=== PATIENT | female | born 1985 | race Two or more races ===

== ENCOUNTER 2019-12-20 15:54 | Emergency (ER) | payer MEDICAID, OTHER ==
[~2019-12-20] VITALS: Ht 165.1 cm; Wt 100.0 kg
[2019-12-20] MEDS ORDERED: CRAN1CAP5 PO (16:17)
[2019-12-20] MEDS ORDERED: SODIUM CHLORIDE 0.9% 1,000 ML IV ONE (18:21)
[2019-12-20] MEDS ORDERED: KETOROLAC 30MG/ML VIAL IV STA (18:21)
[2019-12-20] MEDS ORDERED: ONDANSETRON HCL 4MG/2ML INJ IV STA (18:21)
[2019-12-20] MEDS ORDERED: HYDROCODONE/ACETAMINOPHEN 5/325MG TABLET PO ONE (19:00)
[2019-12-20 19:09] LABS: CHLORIDE 104 mEq/L (98-107)
[2019-12-20 19:12] LABS: BASOPHILS % 0.7 % (0.0-2.0); EOSINOPHILS % 2.4 % (0.0-5.0); HEMATOCRIT. 42.8 % (36.0-48.0); HEMOGLOBIN. 14.9 g/dL (12.0-16.0); LYMPHOCYTES % 33.7 % (20.0-50.0); MEAN CORPUSCULAR HEMOGLOBIN 30.7 pg (28.0-32.0); MONOCYTES % 5.9 % (2.0-8.0); NEUTROPHILS % 57.3 % (40.0-76.0); PLATELET 190 x1000/uL (130-400); RED BLOOD CELL COUNT 4.87 mill/uL (4.2-5.4); RED CELL DISTRIBUTION WIDTH 12.6 % (11.6-14.6)
[2019-12-20 19:14] LABS: INR 0.9; PROTHROMBIN TIME 9.8 sec (9.6-11.0)
[2019-12-20 19:17] LABS: CLARITY URINE CLEAR (CLEAR); COLOR URINE DARK YELLOW (YELLOW); KETONES URINE NEGATIVE (NEGATIVE); LEUKOCYTE ESTERASE URINE 1+ (NEGATIVE); NITRITE URINE NEGATIVE (NEGATIVE); OCCULT BLOOD URINE 1+ (NEGATIVE); PH URINE 6.5 (4.5-8.0); PROTEIN URINE NEGATIVE (NEGATIVE); SPECIFIC GRAVITY URINE 1.011 (1.005-1.030); UROBILINOGEN URINE 0.2 E.U./dL (0.2-1.0)
[2019-12-20 19:20] LABS: HCG SCREEN NEGATIVE
[2019-12-20] MEDS ORDERED: CEFTRIAXONE 1 G PREMIX 50 ML IV NR (20:00)
[2019-12-20 21:10] VITALS: BP 130/78
== END 2019-12-20 22:31 | disposition home or self-care (01) ==
LOC: ER 15:54
DX: N12 Tubulo-interstitial nephritis, not specified as acute or chronic (principal); N39.0 Urinary tract infection, site not specified; Z98.890 Other specified postprocedural states
CPT/HCPCS: 36415; 76770; 80053; 81003; 81025; 83690; 84703; 85025; 85610; 87086; 96365; 96375; 99284; J0696; J1885; J2405; J7030

== ENCOUNTER 2023-08-06 16:05 | Emergency (ER) | payer MEDICAID ==
[~2023-08-06] VITALS: Ht 167.6 cm; Wt 91.0 kg
[~2023-08-06 16:05] MED LIST: CRAN1CAP5 PO
[2023-08-06 16:35] VITALS: TEMP 100.6; O2SAT 100
[2023-08-06 17:48] LABS: BASOPHILS % 0.8 % (0.0-2.0); EOSINOPHILS % 0.8 % (0.0-5.0); HEMATOCRIT. 41.7 % (36.0-48.0); HEMOGLOBIN. 13.7 g/dL (12.0-16.0); LYMPHOCYTES % 22.5 % (20.0-50.0); MEAN CORPUSCULAR HEMOGLOBIN 29.3 pg (28.0-32.0); MEAN CORPUSCULAR HGB CONC 32.9 g/dL (31.0-37.0); MEAN PLATELET VOLUME 9.9 fl (7.4-10.4); MONOCYTES % 6.7 % (2.0-8.0); NEUTROPHILS % 69.2 % (40.0-76.0); PLATELET 233 x1000/uL (130-400); RED BLOOD CELL COUNT 4.68 mill/uL (4.2-5.4); RED CELL DISTRIBUTION WIDTH 12.7 % (11.6-14.6); WHITE BLOOD COUNT 12.5 x1000/uL (4.5-11.0)
[2023-08-06 18:00] LABS: ALANINE AMINOTRANSFERASE 16 IU/L (10-49); ALBUMIN 4.6 g/dL (3.2-4.8); ASPARTATE AMINOTRANSFERASE 13 IU/L (<34); BILIRUBIN TOTAL 0.3 mg/dL (0.1-1.0); CALCIUM 9.8 mg/dL (8.7-10.4); CARBON DIOXIDE 29 mEq/L (21-32); CHLORIDE 104 mEq/L (98-107); CREATININE 0.8 mg/dL (0.6-1.0); GLUCOSE 102 mg/dL (70-105); POTASSIUM 3.9 mEq/L (3.5-5.1); PROTEIN TOTAL 7.9 g/dL (6.0-8.3); SODIUM 139 mEq/L (136-145); UREA NITROGEN BLOOD 12 mg/dL (9-23)
[2023-08-06 18:47] LABS: CLARITY URINE CLOUDY (CLEAR); COLOR URINE YELLOW (YELLOW); GLUCOSE URINE NEGATIVE (NEGATIVE); KETONES URINE NEGATIVE (NEGATIVE); LEUKOCYTE ESTERASE URINE 3+ (NEGATIVE); NITRITE URINE NEGATIVE (NEGATIVE); OCCULT BLOOD URINE 1+ (NEGATIVE); PROTEIN URINE 1+ (NEGATIVE); UROBILINOGEN URINE 0.2 E.U./dL (0.2-1.0)
[2023-08-06 19:26] LABS: BACTERIA URINE 1+; RBC URINE 0-2 /hpf (0-2); WBC URINE 25-50 /hpf (0-2)
[2023-08-06] MEDS ORDERED: CEFTRIAXONE SODIUM 1 G/VIAL IM ONE (19:30)
[2023-08-06] MEDS ORDERED: CEFTRIAXONE SODIUM 1 G/VIAL IM NR (19:30)
[2023-08-06] MEDS ORDERED: ACETAMINOPHEN 325MG TABLET PO ONE (19:30)
[2023-08-06] MEDS ORDERED: ACETAMINOPHEN 325MG TABLET PO NR (19:30)
[2023-08-06 20:30] VITALS: BP 142/87; PULSE 91; RESP 16
[2023-08-06] MEDS ORDERED: KETOROLAC 60MG/2ML VIAL IM ONE (20:30)
[2023-08-06] MEDS ORDERED: KETOROLAC 60MG/2ML VIAL IM NR (20:30)
[2023-08-06] MEDS ORDERED: NITR-87 MT (22:20)
== END 2023-08-07 00:01 | disposition home or self-care (01) ==
LOC: ER 16:11
DX: N39.0 Urinary tract infection, site not specified (principal); R10.30 Lower abdominal pain, unspecified; Z98.890 Other specified postprocedural states
CPT/HCPCS: 99283; 80053; 81003; 81025; 85025; 87086; 87186; 87077; 36415; 96372; J0696; J1885

== ENCOUNTER 2025-06-17 00:20 | Emergency (ER) | payer SELFPAY ==
[~2025-06-17] VITALS: Ht 165.1 cm; Wt 107.0 kg
[~2025-06-17 00:20] MED LIST changes: +NITR-87 MT
[2025-06-17 00:34] VITALS: O2SAT 98
[2025-06-17 01:13] LABS: BASOPHILS % 1.0 % (0.0-2.0); EOSINOPHILS % 2.0 % (0.0-5.0); HEMATOCRIT. 40.6 % (36.0-48.0); HEMOGLOBIN. 13.6 g/dL (12.0-16.0); LYMPHOCYTES % 41.2 % (20.0-50.0); MEAN PLATELET VOLUME 9.4 fl (7.4-10.4); MONOCYTES % 6.6 % (2.0-8.0); NEUTROPHILS % 49.2 % (40.0-76.0); PLATELET 246 x1000/uL (130-400); RED BLOOD CELL COUNT 4.74 mill/uL (4.2-5.4); RED CELL DISTRIBUTION WIDTH 13.0 % (11.6-14.6)
[2025-06-17] MEDS: LIDOCAINE 5% PATCH TOP SCH (01:15)
[2025-06-17 01:22] LABS: CREATININE 0.8 mg/dL (0.6-1.0); UREA NITROGEN BLOOD 12 mg/dL (9-23)
[2025-06-17] MEDS: KETOROLAC 15MG/ML VIAL IM ONE (01:47)
[2025-06-17 01:48] LABS: CLARITY URINE CLEAR (CLEAR); COLOR URINE YELLOW (YELLOW); GLUCOSE URINE NEGATIVE (NEGATIVE); KETONES URINE NEGATIVE (NEGATIVE); LEUKOCYTE ESTERASE URINE NEGATIVE (NEGATIVE); NITRITE URINE NEGATIVE (NEGATIVE); OCCULT BLOOD URINE NEGATIVE (NEGATIVE); PH URINE 6.5 (4.5-8.0); PROTEIN URINE 1+ (NEGATIVE); SPECIFIC GRAVITY URINE 1.019 (1.005-1.030); UROBILINOGEN URINE 0.2 E.U./dL (0.2-1.0)
[2025-06-17 02:03] LABS: SQUAMOUS EPITHELIAL CELL URINE 1+ /lpf (RARE/1+)
[2025-06-17 02:05] LABS: BACTERIA URINE NONE SEEN; RBC URINE 0-2 /hpf (0-2); WBC URINE 0-2 /hpf (0-2)
[2025-06-17] MEDS ORDERED: NAPR-1176 MT (03:25)
[2025-06-17 03:40] VITALS: BP 139/88; PULSE 81; RESP 15; TEMP 36.7; O2SAT 98
== END 2025-06-17 03:43 | disposition home or self-care (01) ==
LOC: ER 00:20
DX: M54.12 Radiculopathy, cervical region (principal); R20.0 Anesthesia of skin; Z98.890 Other specified postprocedural states; Z79.899 Other long term (current) drug therapy
CPT/HCPCS: 36415; 80048; 81003; 81025; 85025; 93005; 99284; J1885